=== PATIENT | male | born 1995 | race African-American/Black ===

== ENCOUNTER 2018-07-26 00:30 | Emergency (ER) | payer SELFPAY ==
[2018-07-26] MEDS ORDERED: Ketorolac Tromethamine 30 MG/ML VIAL ONE (00:58)
[2018-07-26] MEDS ORDERED: Fentanyl 100 MCG/2 ML VIAL ONE (00:58)
[2018-07-26 01:24] LABS: Hemoglobin 13.2 g/dL (14.0-18.0); Mean Corpuscular HGB CONC 32.9 g/dL (32.0-36.0); Mean Corpuscular Hemoglobin 24.2 pg (27.0-31.0); Mean Corpuscular Volume 73.4 fL (78.0-98.0); Red Blood Cell (RBC) Count 5.45 mill/uL (4.70-6.10); White Blood Cell (WBC) Count 17.5 thou/uL (4.8-10.8)
[2018-07-26 01:25] LABS: #Basophils 0.1 thou/uL (0.0-0.2); #Eosinphils 0.1 thou/uL (0.0-0.7); #Monocytes 1.9 thou/uL (0.11-0.59); #Neutrophils 14.4 thou/uL (1.40-6.50); %Basophils 0.6 % (0.0-1.0); %Eosinophils 0.3 % (0.0-10.0); %Lymphocytes 5.8 % (21.0-51.0); %Neutrophils 82.3 % (42.0-75.0); Mean Platelet Volume 7.3 fL (7.4-10.4); Platelet Count 317 thou/uL (130-400)
[2018-07-26 01:28] LABS: ALT (SGPT) 115 U/L (8-55); AST (SGOT) 74 U/L (5-34); Albumin 4.2 g/dL (3.5-5.0); Alkaline Phosphatase 100 U/L (40-150); Anion Gap 13 mmol/L (10-20); BUN (Urea Nitrogen) 7 mg/dL (8.9-20.6); Bilirubin, Total 0.6 mg/dL (0.2-1.2); Calc. Creatinine Clearance 0 mL/min (70-130); Calcium 9.7 mg/dL (7.8-10.44); Carbon Dioxide 25 mmol/L (22-29); Chloride 99 mmol/L (98-107); Estimated GFR-MDRD Greater than 90; Globulin 4.1 g/dL (2.4-3.5); Glucose 112 mg/dL (70-105); Lipase 9 U/L (8-78); Potassium 3.7 mmol/L (3.5-5.1); Protein, Total 8.3 g/dL (6.0-8.3); Sodium 133 mmol/L (136-145)
[2018-07-26] MEDS ORDERED: cefTRIAXone\\ROCEPHIN 2 GM VIAL ONE (01:28)
[2018-07-26 01:33] LABS: CKMB 0.4 ng/mL (0-6.6); Troponin I Less than 0.010 ng/mL (< 0.028)
[2018-07-26 01:40] LABS: Microcytosis SLIGHT = 6-15 cells (100X) (0-5/hpf); PLT Morphology Comment Appears Adequate
[2018-07-26] MEDS ORDERED: Enoxaparin Sodium 100 MG/ML SYRINGE ONE (02:02)
[2018-07-26] MEDS ORDERED: Lorazepam 2 MG/ML VIAL ONE (03:03)
--- NOTE | 2018-07-26 07:38 | RAD ---
PORTABLE CHEST: Date: 07/26/18 The heart seems upper normal in size. There may be some slight prominence of the upper lobe vessels. A small left pleural effusion is present. No lobar consolidations seen. There might be some atelectas is in the lung bases. See CT report to follow. The CT scan showed nodular densities, though these are not easily appreciated on this plain radiograph. IMPRESSION: 1. Borderline heart size. Questionable vascular congestion. 2. Small left pleural effusion. Please see CT report to follow. POS: HOME
--- NOTE | 2018-07-26 09:04 | CT ---
PRELIMINARY REPORT/[facility]/EMERGENTY AFTER-HOURS PROCEDURE Addendum created by Edgar Pérez MD on 07/26/2018 2:56 AM Central Time ([place] & [place]) Findings were di scussed with KERRI ROLLINS at 07/26/2018 2:54 AM CDT. Note that septic emboli is also a strong consid eration, especially considering subsequently providedNhistory of IV drug use. Initial Report created on 07/26/2018 2:50 AM Central Time ([place] & [place]) EXAM: CT Angiography Chest Without And With Intravenous Contrast EXAM DATE/TIME: 07/26/2018 1:52 AM CLINICAL HISTORY: 23 years old, male; Pain and abnormal findings; Abnormal diagnostic tests; Elevated d-dimer; Chest wa ll pain; Patient HX: Left chest wall pain// very high d-dimer; Additional info: 17.500 wbc TECHNIQUE: Axial computed tomographic angiography images of the chest without and with intravenous contrast usin g CT angiography protocol. All CT scans at this facility use at least one of these dose optimization techniques: automated exposure control; mA and/or kV adjustment per patient size (includes targeted exams where dose is mat ched to clinical indication); or iterative reconstruction. MIP reconstructed images were created and reviewed. CONTRAST: 125 ml of ISOVUE 370 administered intravenously. COMPARISON: No relevant prior studies available. FINDINGS: Pulmonary arteries: There is no evidence of peripheral filling defects within the pulmonary arterial circulation to suggest pulmonary embolism. Aorta: The aorta is normal. Lungs: There is a 2.4 x 1.1 cm nodule within the LEFT lower lobe abutting the pleura. There are innum erable nodules throughout the lungs suspicious for metastatic disease. There is LEFT basilar atelecta sis. Pleural space: There is a small LEFT pleural effusion. Heart: Normal. No cardiomegaly. No pericardial effusion. Mediastinum: The trachea is normal. Thyroid: The thyroid gland is normal. Bones/joints: Unremarkable. No acute fracture. Soft tissues: Unremarkable. Lymph nodes: Unremarkable. No enlarged lymph nodes. IMPRESSION: 1. There is no CT evidence of acute pulmonary embolism. 2. There is a 2.4 x 1.1 cm nodule within the LEFT lower lobe abutting the pleura suspicious for neopl asm. 3. There are innumerable nodules throughout the lungs suspicious for metastatic disease. 4. There is a small LEFT pleural effusion. Thank you for allowing us to participate in the care of your patient. Dictated and Authenticated by: Edgar Pérez MD 07/26/2018 2:50 AM Central Time ([place] & [place]) FINAL REPORT CT ANGIO OF CHEST WITH CONTRAST: Date: 07/26/[address] of the chest was performed for evaluation of chest pain and a very high D-Dimer. There is a lso a high white count. Axial slices were acquired after a bolus of IV contrast. Oblique coronal, cor onal, and sagittal reconstructions were done afterwards. There is moderately good opacification of the pulmonary arterial tree. No filling defects are seen in the larger branches to suggest pulmonary emboli. Small defects in the medium sized distal branches w ould be missed. There is no evidence of aortic dissection or aneurysm. No pericardial effusion seen. The main finding on the study is multiple pulmonary nodules scattered throughout the lungs bilaterall y. There is one nodule abutting the pleura in the left lower lobe that measures about 2.5 x 1.0 cm. N odules elsewhere in the lungs generally are in the 1-1.5 cm range with some being smaller. They are l ocated in all lobes. A small left pleural effusion is present. Scans into the upper abdomen show no filling defects in the liver. The spleen is somewhat generous in size, measuring 14.0 cm in length, which is upper limits of normal. No adrenal masses are seen. The bony structures show no sclerotic or lytic lesions. IMPRESSION: 1. Medium sensitivity study for pulmonary embolism. No evidence of pulmonary emboli. 2. Numerous nodules of varying sizes scattered throughout the lungs bilaterally, along with one nodu le abutting the pleura in the left lower lobe. The first consideration would be metastatic disease. S eptic emboli would also be a consideration given the history. Report in agreement with preliminary reading by Rei. POS: HOME
== END 2018-07-26 03:28 | disposition short-term general hospital (02) ==
LOC: BURERS 00:30
DX: I76 Septic arterial embolism (principal); F15.10 Other stimulant abuse, uncomplicated; L02.01 Cutaneous abscess of face; L03.211 Cellulitis of face; F32.9 Major depressive disorder, single episode, unspecified; F17.210 Nicotine dependence, cigarettes, uncomplicated
CPT/HCPCS: 71045; 71275; 80053; 82553; 83605; 83690; 84484; 85025; 85379; 93005; 94760; 96361; 96365; 96367; 96372; 96375; J0696; J1650; J1885; J2060; J3010; J3370

== ENCOUNTER 2022-04-08 11:53 | Emergency (ER) | payer OTHER, SELFPAY | END 2022-04-08 12:40 | disposition home or self-care (01) | LOC: BURERS 11:53 | DX: S43.005A Unspecified dislocation of left shoulder joint, initial encounter (principal); F17.210 Nicotine dependence, cigarettes, uncomplicated; X50.1XXA Overexertion from prolonged static or awkward postures, initial encounter | CPT/HCPCS: 23650 ==

== ENCOUNTER 2024-06-27 17:05 | Emergency (ER) | payer BC, OTHER ==
[2024-06-27 17:24] LABS: #Basophils 0.1 thou/uL (0.0-0.2); #Eosinphils 0.1 thou/uL (0.0-0.7); #Lymphocytes 1.1 thou/uL (1.20-3.40); #Monocytes 0.6 thou/uL (0.11-0.59); #Neutrophils 7.2 thou/uL (1.40-6.50); %Basophils 0.9 % (0.0-1.0); %Eosinophils 1.1 % (0.0-10.0); %Lymphocytes 12.1 % (21.0-51.0); %Monocytes 6.4 % (0.0-10.0); %Neutrophils 79.4 % (42.0-75.0); Hematocrit 43.3 % (42.0-52.0); Hemoglobin 12.6 g/dL (14.0-18.0); Mean Corpuscular HGB CONC 29.1 g/dL (32.0-36.0); Mean Corpuscular Hemoglobin 23.8 pg (27.0-31.0); Mean Corpuscular Volume 81.6 fl (78.0-98.0); Mean Platelet Volume 8.6 fL (7.4-10.4); Platelet Count 357 10x3/uL (130-400); RBC Distribution Width 14.1 % (11.5-14.5); Red Blood Cell (RBC) Count 5.31 mill/uL (4.70-6.10); White Blood Cell (WBC) Count 9.1 10x3/uL (4.8-10.8)
[2024-06-27 17:25] LABS: MDiff Complete? YES
[2024-06-27 17:37] LABS: ALT (SGPT) 38 U/L (8-55); AST (SGOT) 41 U/L (5-34); Albumin 4.3 g/dL (3.5-5.0); Alkaline Phosphatase 71 U/L (40-110); Anion Gap 17 mmol/L (10-20); BUN (Urea Nitrogen) 14 mg/dL (8.9-20.6); CK (CPK) 1081 U/L (30-200); Calc. Creatinine Clearance 0 mL/min (70-130); Calcium 9.5 mg/dL (7.8-10.44); Carbon Dioxide 19 mmol/L (22-29); Chloride 110 mmol/L (98-107); Estimated GFR 81; Globulin 3.4 g/dL (2.4-3.5); Glucose 82 mg/dL (70-105); Potassium 3.8 mmol/L (3.5-5.1); Protein, Total 7.7 g/dL (6.0-8.3); Sodium 142 mmol/L (136-145)
[2024-06-27 17:41] LABS: Acetaminophen Less than 10 mcg/mL (Less than 10); Alcohol Less than 10.0 mg/dL (Less than 10); Salicylate Less than 8.0 mg/dL (Less than 8.0)
[2024-06-27 18:21] LABS: Bilirubin Small (Negative); Blood, Urine Negative (Negative); Clarity Clear (Clear); Glucose, Urine (Dipstick) Negative (Negative); Ketone, Urine 15 mg/dL (Negative); Leukocyte Negative (Negative); Nitrite Negative (Negative); Protein, Urine (Dipstick) Trace mg/dL (Neg-Trace); Urobilinogen 0.2 mg/dL (Less than 2); pH, Urine 5.5 (5.0-9.0)
[2024-06-27 18:23] LABS: Specific Gravity, Urine 1.023 (1.002-1.036)
[2024-06-27 18:26] LABS: Bacteria/HPF 1+ HPF (None Seen); CAUTI Indications for Culture Dysuria,urgency,freq; RBC/HPF None Seen HPF (0-3); Squamous Epithelial 0-3 HPF (0-3); WBC/HPF 0-3 HPF (0-3)
[2024-06-27 18:27] LABS: Urine Culture Reflex No No
[2024-06-27 18:28] LABS: Amphetamine Detected (NotDetected); Barbiturates Screen Not Detected (NotDetected); Benzodiazepine Screen Not Detected (NotDetected); Cocaine Metabolite Screen Detected (NotDetected); Methadone Not Detected (NotDetected); Methamphetamine Detected (NotDetected); Opiate Screen Not Detected (NotDetected); Oxycodone Screen Not Detected (NotDetected); Phencyclidine (PCP) Detected (NotDetected); THC/Cannabinoid Screen Not Detected (NotDetected); Tricyclic Screen Not Detected (NotDetected)
== END 2024-06-27 20:00 | disposition home or self-care (01) ==
LOC: BURERS 17:05
DX: T67.5XXA Heat exhaustion, unspecified, initial encounter (principal); E86.0 Dehydration; F15.10 Other stimulant abuse, uncomplicated; F17.210 Nicotine dependence, cigarettes, uncomplicated
CPT/HCPCS: 80053; 80306; 80307; 81001; 82550; 83605; 85025; 93005; 96360; 96361